=== PATIENT | male | born 1975 | race Caucasian/White ===

== ENCOUNTER 2018-02-06 14:27 | Emergency (ER) | payer SELFPAY ==
--- NOTE | 2018-02-06 16:43 | ER ---
Nurse's Notes [facility] Name: Saul Crouch Age: 42 yrs Sex: Male : 1975 Arrival Date: 02/06/2018 Time: 14:29 Bed 18 Private MD: None, None Diagnosis: Hemorrhoids and perianal venous thrombosis Presentation: 02/06 14:32 Presenting complaint: Patient states: Rectal pain x 1 day after having a "hard poop". sv c/o pink tinged bowel. "My says something is sticking out.". Transition of care: patient was not received from another setting of care. Onset of symptoms was February 05, 2018. Care prior to arrival: None. 14:32 Method Of Arrival: Ambulatory sv 14:32 Acuity: DIANA 4 sv 16:59 Risk Assessment: Do you want to hurt yourself or someone else? Patient reports no ch desire to harm self or others. Initial Sepsis Screen: Does the patient meet any 2 criteria? No. Patient's initial sepsis screen is negative. Does the patient have a suspected source of infection? No. Patient's initial sepsis screen is negative. Historical: - Allergies: 14:34 No Known Allergies; sv - Home Meds: 14:34 None [Active]; sv - PMHx: 14:34 GALLSTONES; Hypertension; sv - PSHx: 14:34 TESTICLE REMOVAL AT AGE 14; sv - Immunization history:: Adult Immunizations up to date. - Social history:: Smoking status: Patient uses tobacco products, smokes one pack cigarettes per day. Patient uses alcohol, on a daily basis. - Ebola Screening: : No symptoms or risks identified at this time. Screenin:05 Abuse screen: Denies threats or abuse. Denies injuries from another. Nutritional ch screening: No deficits noted. Tuberculosis screening: No symptoms or risk factors identified. Fall Risk None identified. Assessment: 16:05 General: Appears in no apparent distress. uncomfortable, Behavior is calm, cooperative. ch Pain: Complains of pain in anus Pain currently is 8 out of 10 on a pain scale. Pain began suddenly. Neuro: No deficits noted. Respiratory: Airway is patent Respiratory effort is even, unlabored, Breath sounds are clear bilaterally. GI: Abdomen is round obese, pt has two external hemorrhoids. Bowel sounds present X 4 quads. Abd is soft and non tender X 4 quads. Reports hemorrhoids. : No signs and/or symptoms were reported regarding the genitourinary system. Derm: Skin is pink, warm \\T\\ dry. 16:58 Reassessment: Patient appears in no apparent distress at this time. Patient and/or ch family updated on plan of care and expected duration. Pain level reassessed. Patient is alert, oriented x 3, equal unlabored respirations, skin warm/dry/pink. Patient states feeling better. Patient states symptoms have improved. Vital Signs: 14:34 BP 138 / 108; Pulse 86; Resp 20; Temp 98; Pulse Ox 98% ; Weight 104.33 kg; Height 5 ft. sv 10 in. (177.80 cm); Pain 10/10; 16:05 BP 142 / 74; Pulse 82; Resp 18; Temp 98.3; Pulse Ox 99% on R/A; Pain 8/10; ch 16:58 BP 156 / 106; Pulse 77; Resp 15; Temp 98.3; Pulse Ox 99% on R/A; Pain 8/10; ch 14:34 Body Mass Index 33.00 (104.33 kg, 177.80 cm) sv ED Course: 14:29 Patient arrived in ED. mr 14:29 None, None is Private Physician. mr 14:34 Triage completed. sv 14:35 Arm band placed on right wrist. sv 14:35 Patient placed in waiting room, Patient notified of wait time. sv 15:29 Devin Pathak MD is Attending Physician. gs 15:33 Viviane Diaz, VERO is Primary Nurse. ch 16:05 No apparent distress. Resting quietly. ch 16:05 Patient has correct armband on for positive identification. Placed in gown. Bed in low ch position. Call light in reach. Side rails up X2. Adult w/ patient. Pulse ox on. NIBP on. Warm blanket given. 16:05 No provider procedures requiring assistance completed. 16:42 Shai Aguilar MD is Referral Physician. 16:58 Patient did not have IV access during this emergency room visit. ch Administered Medications: No medications were administered Outcome: 16:42 Discharge ordered by . 16:58 Discharged to home ambulatory, with family. 16:58 Condition: stable 16:58 Discharge instructions given to patient, family, Instructed on discharge instructions, follow up and referral plans. medication usage, Demonstrated understanding of instructions, follow-up care, medications, Prescriptions given X 2. 17:00 Patient left the ED. Signatures: Viviane Diaz RN RN ch Verde, Stephanie, RN RN sv Rivera, Maria mr Starr, Gregory, MD MD gs Corrections: (The following items were deleted from the chart) 14:37 14:32 Acuity: DIANA 5 [facility]
--- NOTE | 2018-02-13 13:03 | EDPHYS ---
Physician Documentation [facility] Name: Saul Crouch Age: 42 yrs Sex: Male : 1975 Arrival Date: 02/06/2018 Time: 14:29 Bed 18 Private MD: None, None ED Physician Devin Pathak Historical: - Allergies: 02/06 14:34 No Known Allergies; sv - Home Meds: 14:34 None [Active]; sv - PMHx: 14:34 GALLSTONES; Hypertension; sv - PSHx: 14:34 TESTICLE REMOVAL AT AGE 14; sv - Immunization history:: Adult Immunizations up to date. - Social history:: Smoking status: Patient uses tobacco products, smokes one pack cigarettes per day. Patient uses alcohol, on a daily basis. - Ebola Screening: : No symptoms or risks identified at this time. Vital Signs: 14:34 BP 138 / 108; Pulse 86; Resp 20; Temp 98; Pulse Ox 98% ; Weight 104.33 kg; Height 5 ft. sv 10 in. (177.80 cm); Pain 10/10; 16:05 BP 142 / 74; Pulse 82; Resp 18; Temp 98.3; Pulse Ox 99% on R/A; Pain 8/10; ch 16:58 BP 156 / 106; Pulse 77; Resp 15; Temp 98.3; Pulse Ox 99% on R/A; Pain 8/10; ch 14:34 Body Mass Index 33.00 (104.33 kg, 177.80 cm) sv MDM: 16:39 Patient medically screened. gs Administered Medications: No medications were administered Disposition: 02/06/18 16:42 Discharged to Home. Impression: Hemorrhoids and perianal venous thrombosis. - Condition is Stable. - Discharge Instructions: Hemorrhoids, [id number]. - Prescriptions for RectiCare - apply 1 application by RECTAL route 3 times per day As needed; 30 gram. Colace 100 mg Oral Tablet - take 1 tablet by ORAL route every 12 hours; 14 tablet. - Work release form, Medication Reconciliation Form, Thank You Letter, Antibiotic Education, Prescription Opioid Use form. - Follow up: Shai Aguilar MD; When: 2 - 3 days; Reason: Re-evaluation by your physician. Addendum: 02/13/2018 12:55 Addendum: cc-rectal pain, hpi- onset 1 week ago, persistent, no bleeding only pain with g s bm has had before no fever pmh-reviewed agree social hx lives at home ros all reviewed and negative physical exam- gen no distress awake and alert heent no mass op normal cv-rrr no murmur p - lungs clear nl wob gi-soft non tender rectal external hemorroids no bleeding no thrombosis skin no rash neuro no acute changes normal mdm-external hemorrhoids referred to surgery. Signatures: Viviane Diaz RN RN ch Verde, Stephanie, RN RN Devin Wilburn MD MD Corrections: (The following items were deleted from the chart) 02/06 17:00 16:42 02/06/2018 16:42 Discharged to Home. Impression: Hemorrhoids and perianal venous ch thrombosis. Condition is Stable. Forms are Medication Reconciliation Form, Thank You Letter, Antibiotic Education, Prescription Opioid Use. Follow up: Shai Aguilar; When: 2 - 3 days; Reason: Re-evaluation by your physician. gs
== END 2018-02-06 17:00 | disposition home or self-care (01) ==
LOC: ER 14:27
DX: K64.5 Perianal venous thrombosis (principal); I10 Essential (primary) hypertension; F17.210 Nicotine dependence, cigarettes, uncomplicated
CPT/HCPCS: 99283

== ENCOUNTER 2018-07-27 06:32 | Emergency (ER) | payer SELFPAY ==
[2018-07-27] MEDS ORDERED: MORPHINE 4 MG/ML SYR ONE (06:53)
[2018-07-27] MEDS ORDERED: ONDANSETRON 4 MG/2 ML VIAL ONE (06:53)
[2018-07-27] MEDS ORDERED: NA CHLORIDE 0.9% 1,000 ML ONE (06:54)
[2018-07-27 07:38] LABS: Absolute Lymphocytes (CBC) 2.2 K/uL (0.7-4.9); Absolute Monocytes 0.8 K/uL (0.1-1.3); Absolute Neutrophil 6.9 K/uL (1.8-8.0); Basophils % 0.3 % (0-1.3); Eosinophils % 1.1 % (0-4.4); Hematocrit 44.2 % (39.6-49.0); Lymphocytes % 21.4 % (15.3-44.8); MCH 31.2 pg (27.0-35.0); MCV 89.3 fL (80-100); Monocytes % 8.4 % (3.3-12.3); RBC Red Blood Cell Count 4.95 M/uL (4.33-5.43)
[2018-07-27 07:44] LABS: Albumin 3.8 g/dL (3.4-5.0); Bilirubin Direct 0.1 mg/dL (0-0.2); Bilirubin Total 0.6 mg/dL (0.2-1.0); Potassium 3.8 mmol/L (3.5-5.1); Protein, Total 7.3 g/dL (6.4-8.2)
[2018-07-27 08:21] LABS: Urine Blood NEGATIVE (NEG); Urine Glucose NEGATIVE (NEG); Urine Protein NEGATIVE (NEG)
--- NOTE | 2018-07-27 08:51 | RAD REPORT ---
EXAM DESCRIPTION: US - Abdomen Exam Limited - 07/27/2018 7:18 am CLINICAL HISTORY: EPIGASTRIC PAIN COMPARISON: No comparisons FINDINGS: The gallbladder demonstrates extensive shadowing gallstones. No pericholecystic fluid or g allbladder wall thickening. The common bile duct is normal measuring 3 mm. The liver demonstrates no findings of intrahepatic biliary dilatation. IMPRESSION: Extensive cholelithiasis.
--- NOTE | 2018-07-27 09:16 | ER ---
Nurse's Notes [facility] Name: Saul Crouch Age: 43 yrs Sex: Male : 1975 Arrival Date: 07/27/2018 Time: 06:32 Bed 15 Private MD: Diagnosis: Cholelithiasis Presentation: 07/27 06:55 Presenting complaint: Patient states: sudden abdominal pain epigastric area few hours rr5 back. Transition of care: patient was not received from another setting of care. Onset of symptoms was July 27, 2018. Risk Assessment: Do you want to hurt yourself or someone else? Patient reports no desire to harm self or others. Initial Sepsis Screen: Does the patient meet any 2 criteria? No. Patient's initial sepsis screen is negative. Does the patient have a suspected source of infection? No. Patient's initial sepsis screen is negative. Note came in with abdominal pain, facial grimace noted. Care prior to arrival: None. 06:55 Method Of Arrival: Ambulatory rr5 06:55 Acuity: DIANA 3 rr5 Triage Assessment: 07:00 General: Appears uncomfortable, ill, Behavior is calm, cooperative. Pain: Complains of rr5 pain in epigastric area Pain does not radiate. Pain Quality of pain is described as aching. EENT: No signs and/or symptoms were reported regarding the EENT system. Neuro: Level of Consciousness is awake, alert, Oriented to person, place, time, situation. Cardiovascular: Capillary refill < 3 seconds Patient's skin is warm and dry. Respiratory: Airway is patent Respiratory effort is even, unlabored, Respiratory pattern is regular, symmetrical. GI: Abdomen is round Abd is soft X 4 quads. : No signs and/or symptoms were reported regarding the genitourinary system. Derm: Skin is intact, Skin is dry, Skin is pink, warm \T\ dry. Musculoskeletal: No signs and/or symptoms reported regarding the musculoskeletal system. Historical: - Allergies: 07:06 No Known Allergies; rr5 - PMHx: 07:06 GALLSTONES; rr5 - Immunization history:: Adult Immunizations not up to date, Flu vaccine is not up to date. - Social history:: Smoking status: Patient uses tobacco products, smokes one pack cigarettes per day. Patient/guardian denies using alcohol, Patient/guardian denies using. - Ebola Screening: : Patient negative for fever greater than or equal to 101.5 degrees Fahrenheit, and additional compatible Ebola Virus Disease symptoms Patient denies exposure to infectious person Patient denies travel to an Ebola-affected area in the 21 days before illness onset. Screenin:14 Abuse screen: Denies threats or abuse. Denies injuries from another. Nutritional rr5 screening: No deficits noted. Tuberculosis screening: No symptoms or risk factors identified. Fall Risk Total Lau Fall Scale indicates No Risk (0-24 pts). Assessment: 07:12 General: Appears uncomfortable, ill, Behavior is calm, cooperative. Pain: Complains of rr5 pain in epigastric area Pain does not radiate. Pain Quality of pain is described as aching. Neuro: Level of Consciousness is awake, alert, Oriented to person, place, time, situation. Cardiovascular: Capillary refill < 3 seconds Patient's skin is warm and dry. Respiratory: Airway is patent Respiratory effort is even, unlabored, Respiratory pattern is regular, symmetrical. GI: Bowel sounds present X 4 quads. GI:. GI: Abdomen is round Bowel sounds present X 4 quads. EENT: No signs and/or symptoms were reported regarding the EENT system. Derm: No signs and/or symptoms reported regarding the dermatologic system. Musculoskeletal: No signs and/or symptoms reported regarding the musculoskeletal system. 07:15 Reassessment: RECD REPORT FROM HUYEN PHAM. 43YO WM P/W ABD PAIN, H/O CHOLELITHIASIS. U/S bp RESULTS PENDING, ALL OTHER ORDERS COMPLETED. VS STABLE ON MONITOR. 08:59 Reassessment: ALL CURRENT ORDERS COMPLETED, NO ACUTE S/S AT THIS TIME. RESULTS PENDING bp FOR DISPO. Vital Signs: 07:00 BP 134 / 77; Pulse 122; Resp 18; Temp 98.5(O); Pulse Ox 98% on R/A; rr5 07:16 Weight 97.98 kg; Height 5 ft. 10 in. (177.80 cm); rr5 07:25 BP 111 / 66; Pulse 78; Resp 16; Pulse Ox 95% ; bp 09:00 BP 121 / 71; Pulse 81; Resp 16; Pulse Ox 96% ; bp 07:16 Body Mass Index 30.99 (97.98 kg, 177.80 cm) rr5 ED Course: 06:32 Patient arrived in ED. am2 06:37 Joni Armando, RANDOLPH is PHCP. pm1 06:38 Giuseppe Olsen MD is Attending Physician. pm1 06:42 Abdi Jimenez, VERO is Primary Nurse. rr5 06:59 Missed attempt(s): 20 gauge in right in left antecubital area. Bleeding controlled, ds4 band aid applied, catheter tip intact. 07:04 Triage completed. rr5 07:09 Arm band placed on. rr5 07:11 Missed attempt(s): 20 gauge in right forearm. Inserted saline lock: 20 gauge in right lp1 antecubital area, using aseptic technique. Blood collected. 07:15 Report given to tejal and lewis PHAM. rr5 07:16 Ultrasound completed. Patient tolerated well. aa4 07:17 US Abdomen Limited In Process Unspecified. EDMS 09:12 Aris Ellington MD is Referral Physician. pm1 09:31 No provider procedures requiring assistance completed. IV discontinued, intact, bp bleeding controlled, No redness/swelling at site. Pressure dressing applied. 09:32 Patient has correct armband on for positive identification. Bed in low position. Call bp light in reach. Side rails up X2. Adult w/ patient. Administered Medications: 07:00 Drug: morphine 4 mg Route: IVP; Site: right antecubital; rr5 07:26 Follow up: Response: Pain is decreased bp 07:00 Drug: Zofran 4 mg Route: IVP; Site: right antecubital; rr5 07:26 Follow up: Response: Nausea is decreased bp 07:11 Drug: NS 0.9% 1000 ml Route: IV; Rate: 1000 ml; Site: right antecubital; rr5 09:32 Follow up: IV Status: Completed infusion; IV Intake: 1000ml bp Intake: 09:32 IV: 1000ml; Total: 1000ml. bp Outcome: 09:15 Discharge ordered by . pm1 09:31 Discharged to home ambulatory, with friend. bp 09:31 Condition: stable 09:31 Discharge instructions given to patient, Instructed on discharge instructions, follow up and referral plans. medication usage, Demonstrated understanding of instructions, follow-up care, medications, Prescriptions given X 3. 09:33 Patient left the ED. bp Signatures: Dispatcher [employer] EDMN Natalia Mendez aa4 Huyen Hensley, RN RN lp1 Reji Herrera ds4 Joni Armando, CLAY PRESS OPERATOR CLAY PRESS OPERATOR pm1 Natalia Hdz am2 Lewis Lu, RN RN bp Abdi Jimenez RN RN rr5
--- NOTE | 2018-07-27 09:16 | EDPHYS ---
Physician Documentation [facility] Name: Saul Crouch Age: 43 yrs Sex: Male : 1975 Arrival Date: 07/27/2018 Time: 06:32 Bed 15 Private MD: ED Physician Giuseppe Olsen HPI: 07/27 06:56 This 43 yrs old Male presents to ER via Unassigned with complaints of pm1 Abdominal Pain. 06:56 The patient presents with abdominal pain in the epigastric area. Onset: The pm1 symptoms/episode began/occurred 3 hour(s) ago. The symptoms do not radiate. 06:56 Associated signs and symptoms: Pertinent negatives: nausea, vomiting, and diarrhea, pm1 chest pain, dysuria, fever, headache, shortness of breath. The symptoms are described as crampy. Modifying factors: The symptoms are alleviated by nothing, the symptoms are aggravated by Possibly food. Ate tacos last night. Severity of pain: in the emergency department the pain is actually worse. The patient has experienced similar episodes in the past, a few times. The patient has not recently seen a physician, and does not have an established primary care provider. Patient with known history of gallstones. Historical: - Allergies: 07:06 No Known Allergies; rr5 - PMHx: 07:06 GALLSTONES; rr5 - Immunization history:: Adult Immunizations not up to date, Flu vaccine is not up to date. - Social history:: Smoking status: Patient uses tobacco products, smokes one pack cigarettes per day. Patient/guardian denies using alcohol, Patient/guardian denies using. - Ebola Screening: : Patient negative for fever greater than or equal to 101.5 degrees Fahrenheit, and additional compatible Ebola Virus Disease symptoms Patient denies exposure to infectious person Patient denies travel to an Ebola-affected area in the 21 days before illness onset. ROS: 06:56 Constitutional: Negative for fever, chills, and weight loss, Eyes: Negative for injury, pm1 pain, redness, and discharge, ENT: Negative for injury, pain, and discharge, Neck: Negative for injury, pain, and swelling, Cardiovascular: Negative for chest pain, palpitations, and edema, Respiratory: Negative for shortness of breath, cough, wheezing, and pleuritic chest pain. 06:56 Back: Negative for injury and pain, : Negative for injury, bleeding, discharge, and swelling, MS/Extremity: Negative for injury and deformity, Skin: Negative for injury, rash, and discoloration, Neuro: Negative for headache, weakness, numbness, tingling, and seizure. 06:56 Abdomen/GI: Positive for abdominal pain, Negative for nausea, vomiting, and diarrhea. Exam: 07:22 Constitutional: This is a well developed, well nourished patient who is awake, alert, pm1 and in no acute distress. Head/Face: Normocephalic, atraumatic. Eyes: Pupils equal round and reactive to light, extra-ocular motions intact. Lids and lashes normal. Conjunctiva and sclera are non-icteric and not injected. Cornea within normal limits. Periorbital areas with no swelling, redness, or edema. ENT: Nares patent. No nasal discharge, no septal abnormalities noted. Tympanic membranes are normal and external auditory canals are clear. Oropharynx with no redness, swelling, or masses, exudates, or evidence of obstruction, uvula midline. Mucous membranes moist. Neck: Trachea midline, no thyromegaly or masses palpated, and no cervical lymphadenopathy. Supple, full range of motion without nuchal rigidity, or vertebral point tenderness. No Meningismus. Chest/axilla: Normal chest wall appearance and motion. Nontender with no deformity. No lesions are appreciated. Cardiovascular: Regular rate and rhythm with a normal S1 and S2. No gallops, murmurs, or rubs. Normal PMI, no JVD. No pulse deficits. Respiratory: Lungs have equal breath sounds bilaterally, clear to auscultation and percussion. No rales, rhonchi or wheezes noted. No increased work of breathing, no retractions or nasal flaring. 07:22 Back: No spinal tenderness. No costovertebral tenderness. Full range of motion. Skin: Warm, dry with normal turgor. Normal color with no rashes, no lesions, and no evidence of cellulitis. MS/ Extremity: Pulses equal, no cyanosis. Neurovascular intact. Full, normal range of motion. 07:22 Abdomen/GI: Inspection: abdomen appears normal, Bowel sounds: normal, Palpation: soft, mild abdominal tenderness, in the epigastric area, mass, is not appreciated, rebound tenderness, is not appreciated, Indicators: McBurney's point is not tender, Laurent's sign is negative, Rovsing's sign is negative, Obturator sign is negative, Psoas sign is negative. 07:22 Neuro: Orientation: is normal, Motor: is normal, moves all fours, Sensation: is normal, no obvious gross deficits, Gait: is steady, at a normal pace, without difficulty. Vital Signs: 07:00 BP 134 / 77; Pulse 122; Resp 18; Temp 98.5(O); Pulse Ox 98% on R/A; rr5 07:16 Weight 97.98 kg; Height 5 ft. 10 in. (177.80 cm); rr5 07:25 BP 111 / 66; Pulse 78; Resp 16; Pulse Ox 95% ; bp 09:00 BP 121 / 71; Pulse 81; Resp 16; Pulse Ox 96% ; bp 07:16 Body Mass Index 30.99 (97.98 kg, 177.80 cm) rr5 MDM: 06:38 Patient medically screened. pm1 07:23 Data reviewed: vital signs. Data interpreted: Pulse oximetry: on room air is 98 %. pm1 Interpretation: normal. 09:12 Counseling: I had a detailed discussion with the patient and/or guardian regarding: the pm1 historical points, exam findings, and any diagnostic results supporting the discharge/admit diagnosis, lab results, radiology results, the need for outpatient follow up, to return to the emergency department if symptoms worsen or persist or if there are any questions or concerns that arise at home. 07/27 06:44 Order name: Basic Metabolic Panel; Complete Time: 07:55 pm1 07/27 06:44 Order name: CBC with Diff; Complete Time: 07:55 pm1 07/27 06:44 Order name: Creatinine for Radiology; Complete Time: 07:36 pm1 07/27 06:44 Order name: Hepatic Function; Complete Time: 07:55 pm1 07/27 06:44 Order name: Lipase; Complete Time: 07:55 pm1 07/27 08:09 Order name: Urine Dipstick--Ancillary (enter results); Complete Time: 08:22 gm 07/27 06:44 Order name: IV Saline Lock; Complete Time: 07:12 pm1 07/27 06:44 Order name: Labs collected and sent; Complete Time: 07:12 pm1 07/27 06:44 Order name: Urine Dipstick-Ancillary (obtain specimen); Complete Time: 08:06 pm1 07/27 06:46 Order name: US Abdomen Limited; Complete Time: 08:54 pm1 Administered Medications: 07:00 Drug: morphine 4 mg Route: IVP; Site: right antecubital; rr5 07:26 Follow up: Response: Pain is decreased bp 07:00 Drug: Zofran 4 mg Route: IVP; Site: right antecubital; rr5 07:26 Follow up: Response: Nausea is decreased bp 07:11 Drug: NS 0.9% 1000 ml Route: IV; Rate: 1000 ml; Site: right antecubital; rr5 09:32 Follow up: IV Status: Completed infusion; IV Intake: 1000ml bp Disposition: 07/27/18 09:15 Discharged to Home. Impression: Cholelithiasis. - Condition is Stable. - Discharge Instructions: Cholelithiasis. - Prescriptions for Bentyl 20 mg Oral Tablet - take 1 tablet by ORAL route every 6 hours As needed; 20 tablet. Tylenol- Codeine #3 300-30 mg Oral Tablet - take 2 tablets by ORAL route every 6 hours As needed; 20 tablet. Zofran 4 mg Oral Tablet - take 1 tablet by ORAL route every 12 hours As needed; 20 tablet. - Medication Reconciliation Form, Thank You Letter, Prescription Opioid Use form. - Follow up: Emergency Department; When: As needed; Reason: Worsening of condition. Follow up: Aris Ellington MD; When: 2 - 3 days; Reason: Recheck today's complaints, Continuance of care, Re-evaluation by your physician. - Problem is new. - Symptoms have improved. Addendum: 07/30/2018 06:56 Co-signature as Attending Physician, Giuseppe Olsen MD I agree with the assessment and c hutson plan of care. Signatures: Dispatcher [employer] EDHI Giuseppe Olsen MD MD cha Marinas, Patrick, BEHAVIORAL MEDICAL DIRECTOR BEHAVIORAL MEDICAL DIRECTOR pm1 Lewis Lu RN RN Abdi Nguyen, RN RN rr5 Corrections: (The following items were deleted from the chart) 07/27 09:33 09:15 07/27/2018 09:15 Discharged to Home. Impression: Cholelithiasis. Condition is bp Stable. Forms are Medication Reconciliation Form, Thank You Letter, Antibiotic Education, Prescription Opioid Use. Follow up: Emergency Department; When: As needed; Reason: Worsening of condition. Follow up: Aris Ellington; When: 2 - 3 days; Reason: Recheck today's complaints, Continuance of care, Re-evaluation by your physician. Problem is new. Symptoms have improved. pm1
== END 2018-07-27 09:33 | disposition home or self-care (01) ==
LOC: ER 06:32
DX: K80.20 Calculus of gallbladder without cholecystitis without obstruction (principal); F17.210 Nicotine dependence, cigarettes, uncomplicated
CPT/HCPCS: 36415; 76705; 80048; 80076; 81003; 83690; 85025; 96361; 96374; 96375; 99284; J2405; J7030